=== PATIENT | female | born 1940 | race Caucasian/White ===

== ENCOUNTER → 2018-11-10 | Outpatient (REF) | payer MEDICARE ==
[~2018-11-10] MED LIST: ADVIL200 MG OR; AMOXICILLIN875 MG OR; BENADRYL ALL OR; COZAAR50 MG OR; FELDENE20 MG OR; LORTAB 5 OR; PREVACID30 M2 OR; TRAMADOL HCL50 MG OR; TYLENOL500 MG OR; [UNRECOGNIZED DRUG - OTHER]; asa
[2018-11-10 12:19] LABS: HEMATOCRIT 38.9 % (37.0-47.0); HEMOGLOBIN 12.3 g/dl (12.0-16.0); IMMATURE GRANULOCYTES 0.3 % (0.0-5.0); MEAN CELL VOLUME 105.4 fL CALC (80.0-100.0); MEAN CORPUSCULAR HGB 33.3 pG CALC (26.0-32.0); MEAN CORPUSCULAR HGB CONC 31.6 g/L CALC (32.0-36.0); NEUT# 3.56 thou/uL (2.00-7.15); RED BLOOD COUNT 3.69 mill/uL (4.20-5.60); RED CELL DISTRI WIDTH 13.7 % (11.5-15.5)
[2018-11-10 12:45] LABS: ALBUMIN 4.2 g/dL (3.2-5.0)
== END | disposition home or self-care (01) ==
LOC: LAB 11:47
DX: M05.79 Rheumatoid arthritis with rheumatoid factor of multiple sites without organ or systems involvement (principal); Z79.899 Other long term (current) drug therapy